=== PATIENT | male | born 1990 | race Caucasian/White ===

== ENCOUNTER 2019-11-20 13:00 | Emergency (ER) | payer SELFPAY ==
[2019-11-20] MEDS ORDERED: NA CHLORIDE 0.9% 2,000 ML ONE (14:08)
[2019-11-20] MEDS ORDERED: ONDANSETRON 4 MG/2 ML VIAL ONE (14:08)
[2019-11-20 14:11] LABS: Basophils % 0.3 % (0-1.3); Hematocrit 51.3 % (39.6-49.0); Lymphocytes % 6.2 % (15.3-44.8); RBC Red Blood Cell Count 5.88 M/uL (4.33-5.43)
[2019-11-20 14:24] LABS: Potassium 3.5 mmol/L (3.5-5.1)
[2019-11-20] MEDS ORDERED: PROMETHAZINE INJ 25 MG/ML AMP ONE (14:42)
--- NOTE | 2019-11-20 15:51 | EDPHYS ---
Physician Documentation [facility] Name: Michael Goncalves Age: 29 yrs Sex: Male : 1990 Arrival Date: 11/20/2019 Time: 13:14 Bed 14 Private MD: ED Physician Yrn Velez HPI: 11/20 13:57 This 29 yrs old Male presents to ER via Ambulatory with complaints of la1 Vomiting, Dehydration. 13:57 The patient presents to the emergency department with nausea, vomiting. Onset: The la1 symptoms/episode began/occurred 5 day(s) ago. Possible causes: flu. The symptoms are aggravated by nothing. The symptoms are alleviated by nothing. Associated signs and symptoms: Pertinent negatives: abdominal pain, constipation, diarrhea, dysuria, fever, GI bleeding, hematuria. Severity of symptoms: At their worst the symptoms were moderate. The patient has not experienced similar symptoms in the past. pt was dx with the flu and has not been able to tolerate food for fluids for the last five days, reports decreased urine output. Denies fevers. . Historical: - Allergies: 13:49 No Known Allergies; ph - Home Meds: 13:49 None [Active]; ph - PMHx: 13:49 None; ph - Immunization history:: Adult Immunizations up to date. - Social history:: Smoking status: Patient/guardian denies using tobacco. - Ebola Screening: : Patient negative for fever greater than or equal to 101.5 degrees Fahrenheit, and additional compatible Ebola Virus Disease symptoms Patient denies exposure to infectious person Patient denies travel to an Ebola-affected area in the 21 days before illness onset No symptoms or risks identified at this time. ROS: 13:59 Constitutional: Negative for fever, chills, and weight loss, Eyes: Negative for injury, la1 pain, redness, and discharge, ENT: Negative for injury, pain, and discharge, Neck: Negative for injury, pain, and swelling, Cardiovascular: Negative for chest pain, palpitations, and edema, Respiratory: Negative for shortness of breath, cough, wheezing, and pleuritic chest pain. 13:59 Back: Negative for injury and pain, : Negative for injury, bleeding, discharge, and swelling, MS/Extremity: Negative for injury and deformity, Neuro: Negative for headache, weakness, numbness, tingling, and seizure, Allergy/Immunology: Negative for hives, rash, and allergies. 13:59 Abdomen/GI: Positive for nausea and vomiting. Exam: 13:59 Constitutional: This is a well developed, well nourished patient who is awake, alert, la1 and in no acute distress. Head/Face: Normocephalic, atraumatic. Eyes: Pupils equal round and reactive to light, extra-ocular motions intact. Periorbital areas with no swelling, redness, or edema. ENT: Mucous membranes moist. Neck: No Meningismus. Chest/axilla: Normal chest wall appearance and motion. Nontender with no deformity. No lesions are appreciated. Cardiovascular: Regular rate and rhythm with a normal S1 and S2. Respiratory: Lungs have equal breath sounds bilaterally, clear to auscultation. No rales, rhonchi or wheezes noted. No increased work of breathing, no retractions or nasal flaring. Abdomen/GI: Soft, non-tender, with normal bowel sounds. No guarding or rebound. No evidence of tenderness throughout. Back: No spinal tenderness. No costovertebral tenderness. Full range of motion. Vital Signs: 13:50 BP 177 / 123; Pulse 63; Resp 18; Temp 97.4; Pulse Ox 100% on R/A; Weight 86.18 kg; ph Height 5 ft. 11 in. (180.34 cm); 15:02 BP 137 / 79; Pulse 84; Resp 17 S; Pulse Ox 99% on R/A; ca1 16:00 BP 124 / 70; Pulse 79; Resp 17 S; Pulse Ox 100% on R/A; ca1 13:50 Body Mass Index 26.50 (86.18 kg, 180.34 cm) ph MDM: 13:43 Patient medically screened. la1 15:06 Data reviewed: vital signs, nurses notes, lab test result(s), and as a result, I will la1 discharge patient. Data interpreted: Pulse oximetry: on room air is 99 %. Interpretation: normal. Counseling: I had a detailed discussion with the patient and/or guardian regarding: the historical points, exam findings, and any diagnostic results supporting the discharge/admit diagnosis, the need for outpatient follow up, a family practitioner, to return to the emergency department if symptoms worsen or persist or if there are any questions or concerns that arise at home. Medication response: Phenergan markedly relieved the patient's nausea. Response to treatment: the patient's symptoms have markedly improved after treatment, patient is well hydrated. and as a result, I will discharge patient. 11/20 13:50 Order name: Basic Metabolic Panel; Complete Time: 14:25 11/20 13:50 Order name: CBC with Diff; Complete Time: 14:11/20 13:50 Order name: IV Saline Lock; Complete Time: 14:11/20 13:50 Order name: Labs collected and sent; Complete Time: 14:11/20 15:06 Order name: PO challenge; Complete Time: 15:27 Administered Medications: 14:05 Drug: NS 0.9% 1000 ml Route: IV; Rate: 1000 ml; Site: right antecubital; ca1 15:30 Follow up: Response: No adverse reaction; IV Status: Completed infusion ca1 14:06 Drug: NS 0.9% 1000 ml Route: IV; Rate: 1 bolus; Site: right antecubital; ca1 15:30 Follow up: Response: No adverse reaction; IV Status: Completed infusion ca1 14:07 Drug: Zofran 4 mg Route: IVP; Site: right antecubital; ca1 14:40 Follow up: Response: No adverse reaction; Nausea unchanged ca1 14:42 Drug: Phenergan 12.5 mg Route: IVP; Site: right antecubital; ca1 15:30 Follow up: Response: No adverse reaction; Nausea is decreased ca1 Disposition: 18:31 Co-signature as Attending Physician, Yrn Velez MD. rn Disposition: 11/20/19 15:50 Discharged to Home. Impression: Nausea and vomiting. - Condition is Stable. - Discharge Instructions: Nausea and Vomiting, Adult, Rehydration, Adult. - Prescriptions for Zofran 4 mg Oral Tablet - take 1 tablet by ORAL route every 12 hours As needed; 20 tablet. promethazine 25 mg Oral Tablet - take 1 tablet by ORAL route every 6 hours As needed; 20 tablet. - Medication Reconciliation Form, Thank You Letter, Work release form form. - Follow up: Private Physician; When: 2 - 3 days; Reason: Recheck today's complaints, Re-evaluation by your physician. - Problem is new. - Symptoms have improved. Signatures: Dispatcher [employer] EDYrn Henley MD MD rn Attema, Lee, EMERGENCY PLANNING AND RESPONSE MANAGER-C EMERGENCY PLANNING AND RESPONSE MANAGER-Cla1 Lindsay Donohue, RN RN ph AcDeysi thompson, RN RN ca1 Corrections: (The following items were deleted from the chart) 16:17 15:50 11/20/2019 15:50 Discharged to Home. Impression: Nausea and vomiting. Condition ca1 is Stable. Forms are Medication Reconciliation Form, Thank You Letter, Antibiotic Education, Prescription Opioid Use. Follow up: Private Physician; When: 2 - 3 days; Reason: Recheck today's complaints, Re-evaluation by your physician. Problem is new. Symptoms have improved. la1
--- NOTE | 2019-11-20 15:51 | ER ---
Nurse's Notes [facility] Name: Michael Goncalves Age: 29 yrs Sex: Male : 1990 Arrival Date: 11/20/2019 Time: 13:14 Bed 14 Private MD: Diagnosis: Nausea and vomiting Presentation: 11/20 13:47 Presenting complaint: Patient states: Dx w/ flu Sunday at urgent care, prescribed ph Tamiflu, c/o N/V, states " I can't keep anything down and I feel dehydrated.". Transition of care: patient was not received from another setting of care. Onset of symptoms was November 20, 2019. Risk Assessment: Do you want to hurt yourself or someone else? Patient reports no desire to harm self or others. Initial Sepsis Screen: Does the patient meet any 2 criteria? No. Patient's initial sepsis screen is negative. Does the patient have a suspected source of infection? No. Patient's initial sepsis screen is negative. Care prior to arrival: None. 13:47 Method Of Arrival: Ambulatory ph 13:50 Acuity: CHRIS 3 ph Historical: - Allergies: 13:49 No Known Allergies; ph - Home Meds: 13:49 None [Active]; ph - PMHx: 13:49 None; ph - Immunization history:: Adult Immunizations up to date. - Social history:: Smoking status: Patient/guardian denies using tobacco. - Ebola Screening: : Patient negative for fever greater than or equal to 101.5 degrees Fahrenheit, and additional compatible Ebola Virus Disease symptoms Patient denies exposure to infectious person Patient denies travel to an Ebola-affected area in the 21 days before illness onset No symptoms or risks identified at this time. Screenin:00 Abuse screen: Denies threats or abuse. Denies injuries from another. Nutritional ca1 screening: No deficits noted. Tuberculosis screening: No symptoms or risk factors identified. Fall Risk IV access (20 points). Assessment: 14:00 General: Appears in no apparent distress. comfortable, Behavior is calm, cooperative, ca1 appropriate for age. Pain: Denies pain. Neuro: Level of Consciousness is awake, alert, obeys commands, Oriented to person, place, time, situation, Appropriate for age. Cardiovascular: Heart tones S1 S2 present Capillary refill < 3 seconds Patient's skin is warm and dry. Respiratory: Airway is patent Respiratory effort is even, unlabored, Respiratory pattern is regular, symmetrical, Breath sounds are clear bilaterally. GI: Abdomen is flat, non-distended, Bowel sounds present X 4 quads. Abd is soft and non tender X 4 quads. Reports nausea, vomiting, since 5 days ago. : No deficits noted. No signs and/or symptoms were reported regarding the genitourinary system. EENT: No deficits noted. No signs and/or symptoms were reported regarding the EENT system. Derm: Skin is intact, is healthy with good turgor, Skin is pink, warm \\T\\ dry. Musculoskeletal: Circulation, motion, and sensation intact. Capillary refill < 3 seconds. 15:02 Reassessment: Patient appears in no apparent distress at this time. Patient and/or ca1 family updated on plan of care and expected duration. Pain level reassessed. Patient is alert, oriented x 3, equal unlabored respirations, skin warm/dry/pink. 16:02 Reassessment: Patient appears in no apparent distress at this time. Patient is alert, ca1 oriented x 3, equal unlabored respirations, skin warm/dry/pink. Tolerated a cup of water. No reports of N/V Patient states feeling better. Patient states symptoms have improved. Vital Signs: 13:50 BP 177 / 123; Pulse 63; Resp 18; Temp 97.4; Pulse Ox 100% on R/A; Weight 86.18 kg; ph Height 5 ft. 11 in. (180.34 cm); 15:02 BP 137 / 79; Pulse 84; Resp 17 S; Pulse Ox 99% on R/A; ca1 16:00 BP 124 / 70; Pulse 79; Resp 17 S; Pulse Ox 100% on R/A; ca1 13:50 Body Mass Index 26.50 (86.18 kg, 180.34 cm) ph ED Course: 13:14 Patient arrived in ED. as 13:35 Spencer Gudino FNP-C [facility]. la1 13:35 Yrn Velez MD is Attending Physician. la1 13:41 Deysi Patterson, INÉS is Primary Nurse. ca1 13:50 Triage completed. ph 13:50 Arm band placed on Patient placed in an exam room, on a stretcher. ph 14:00 Patient has correct armband on for positive identification. Bed in low position. Call ca1 light in reach. Side rails up X 1. Pulse ox on. NIBP on. Warm blanket given. 14:02 No provider procedures requiring assistance completed. Initial lab(s) drawn, by me, ca1 sent to lab. Inserted saline lock: 22 gauge in right antecubital area, using aseptic technique. Blood collected. 16:16 IV discontinued, intact, bleeding controlled, No redness/swelling at site. Pressure ca1 dressing applied. Administered Medications: 14:05 Drug: NS 0.9% 1000 ml Route: IV; Rate: 1000 ml; Site: right antecubital; ca1 15:30 Follow up: Response: No adverse reaction; IV Status: Completed infusion ca1 14:06 Drug: NS 0.9% 1000 ml Route: IV; Rate: 1 bolus; Site: right antecubital; ca1 15:30 Follow up: Response: No adverse reaction; IV Status: Completed infusion ca1 14:07 Drug: Zofran 4 mg Route: IVP; Site: right antecubital; ca1 14:40 Follow up: Response: No adverse reaction; Nausea unchanged ca1 14:42 Drug: Phenergan 12.5 mg Route: IVP; Site: right antecubital; ca1 15:30 Follow up: Response: No adverse reaction; Nausea is decreased ca1 Outcome: 15:50 Discharge ordered by MD. link 16:16 Discharged to home ambulatory. ca1 16:16 Condition: stable 16:16 Discharge instructions given to patient, Instructed on discharge instructions, follow up and referral plans. medication usage, Demonstrated understanding of instructions, follow-up care, medications, Prescriptions given X 2. 16:17 Patient left the ED. ca1 Signatures: Elysia Tobin Lee, CONSUMER RELATIONS COMPLAINT CLERK-C CONSUMER RELATIONS COMPLAINT CLERK-Cla1 Lindsay Donohue, RN RN Deysi Patterson RN RN ca1
[2019-11-20 16:39] VITALS: TEMP 97.4
[2019-11-20 16:42] VITALS: BP 124/70; O2SAT 100
== END 2019-11-20 16:17 | disposition home or self-care (01) ==
LOC: ER 13:00
DX: R11.2 Nausea with vomiting, unspecified (principal)
CPT/HCPCS: 36415; 80048; 85025; 96361; 96374; 96375; 99284; J2405; J2550; J7030

== ENCOUNTER 2019-12-19 20:03 | Emergency (ER) | payer BC, SELFPAY ==
[2019-12-19] MEDS ORDERED: ONDANSETRON 4 MG/2 ML VIAL ONE (20:50)
[2019-12-19] MEDS ORDERED: FAMOTIDINE 20 MG/2 ML VIAL IV ONE (20:50)
[2019-12-19] MEDS ORDERED: NA CHLORIDE 0.9% 1,000 ML ONE (20:50)
[2019-12-19 21:11] LABS: Absolute Lymphocytes (CBC) 1.2 K/uL (0.7-4.9); Basophils % 0.4 % (0-1.3); Hematocrit 45.6 % (39.6-49.0); Lymphocytes % 5.7 % (15.3-44.8); RBC Red Blood Cell Count 5.05 M/uL (4.33-5.43)
[2019-12-19 21:20] LABS: ALT/SGPT 17 U/L (12-78); AST/SGOT 10 U/L (15-37); Albumin 4.8 g/dL (3.4-5.0); Alkaline Phosphatase 59 U/L (45-117); BUN Blood Urea Nitrogen 11 mg/dL (7-18); Bicarbonate 27 mmol/L (21-32); Bilirubin Direct 0.2 mg/dL (0-0.2); Bilirubin Total 0.6 mg/dL (0.2-1.0); Glucose Level 98 mg/dL (74-106); Lipase 132 U/L (73-393); Potassium 3.6 mmol/L (3.5-5.1); Protein, Total 7.9 g/dL (6.4-8.2); Sodium Level 141 mmol/L (136-145)
--- NOTE | 2019-12-20 00:02 | ER ---
Nurse's Notes [facility] Name: Michael Goncalves Age: 29 yrs Sex: Male : 1990 Arrival Date: 12/19/2019 Time: 20:06 Bed 6 Private MD: Diagnosis: Nausea and vomiting Presentation: 12/19 20:20 Presenting complaint: Patient states: I am not feeling well nausea, vomiting and feel rr5 dehydrated. just like the same feeling couple of weeks ago I went here with a flu. 20:20 Transition of care: patient was not received from another setting of care. Onset of rr5 symptoms was December 2019. Risk Assessment: Do you want to hurt yourself or someone else? Patient reports no desire to harm self or others. Initial Sepsis Screen: Does the patient meet any 2 criteria? No. Patient's initial sepsis screen is negative. Does the patient have a suspected source of infection? No. Patient's initial sepsis screen is negative. Care prior to arrival: Medication(s) given: promethazine. 20:20 Method Of Arrival: Ambulatory rr5 20:20 Acuity: CHRIS 3 rr5 Historical: - Allergies: 20:20 No Known Allergies; rr5 - Home Meds: 20:20 None [Active]; rr5 - PMHx: 20:20 None; rr5 - PSHx: 20:20 None; rr5 - Immunization history:: Adult Immunizations up to date. - Coronavirus screen:: The patient has NOT traveled to [place] in the past 14 days. - Social history:: Smoking status: Patient reports the use of cigarette tobacco products, smokes one pack cigarettes per day. Patient/guardian denies using alcohol, street drugs. - Ebola Screening: : Patient negative for fever greater than or equal to 101.5 degrees Fahrenheit, and additional compatible Ebola Virus Disease symptoms Patient denies exposure to infectious person Patient denies travel to an Ebola-affected area in the 21 days before illness onset. Screenin:20 Abuse screen: Denies threats or abuse. Denies injuries from another. Nutritional rr5 screening: No deficits noted. Tuberculosis screening: No symptoms or risk factors identified. Fall Risk None identified. Total Hall Fall Scale indicates No Risk (0-24 pts). Assessment: 21:05 General: Appears in no apparent distress. uncomfortable, Behavior is calm, cooperative, rr5 appropriate for age. Pain: Denies pain. Neuro: Level of Consciousness is awake, alert, obeys commands, Oriented to person, place, time, situation, Reports weakness in genralized. Cardiovascular: Capillary refill < 3 seconds Patient's skin is warm and dry. Respiratory: Airway is patent Respiratory effort is even, unlabored, Respiratory pattern is regular, symmetrical. GI: Abdomen is flat, Reports nausea, vomiting. : No signs and/or symptoms were reported regarding the genitourinary system. EENT: No signs and/or symptoms were reported regarding the EENT system. Derm: Skin is intact, is healthy with good turgor, Skin temperature is warm. Musculoskeletal: Circulation, motion, and sensation intact. Capillary refill < 3 seconds. 22:10 Reassessment: Patient appears in no apparent distress at this time. Patient is alert, rr5 oriented x 3, equal unlabored respirations, skin warm/dry/pink. awaiting for CT result. 23:25 Reassessment: Patient appears in no apparent distress at this time. awaiting for CT rr5 result. follow up to CT department. 23:25 Reassessment: Patient appears in no apparent distress at this time. Patient is alert, rr5 oriented x 3, equal unlabored respirations, skin warm/dry/pink. 12/20 00:00 Reassessment: Patient appears in no apparent distress at this time. Patient is alert, rr5 oriented x 3, equal unlabored respirations, skin warm/dry/pink. review done by ED provider with order made for urine test. patient refused and wants to be discharge. ED provider agreed and given prescription. 00:15 Reassessment: Patient appears in no apparent distress at this time. Patient is alert, rr5 oriented x 3, equal unlabored respirations, skin warm/dry/pink. discharge instruction given and explained without complaints made. Patient states symptoms have improved. Vital Signs: 12/19 20:20 BP 129 / 74; Pulse 63; Resp 18; Temp 98.1; Pulse Ox 95% ; Weight 88.45 kg; Height 5 ft. rr5 11 in. (180.34 cm); Pain 0/10; 21:30 BP 121 / 69; Pulse 66; Resp 17; Pulse Ox 98% on R/A; rr5 22:40 BP 133 / 70; Pulse 60; Resp 16; Pulse Ox 99% ; rr5 23:55 BP 115 / 70; Pulse 61; Resp 15; Temp 98.9; Pulse Ox 98% ; Pain 0/10; rr5 20:20 Body Mass Index 27.20 (88.45 kg, 180.34 cm) rr5 ED Course: 20:06 Patient arrived in ED. es 20:07 Alvaro Alvarado PA is PHCP. cp 20:07 Ac Weiner MD is Attending Physician. cp 20:20 Arm band placed on right wrist. rr5 20:23 Justin Henriquez, INÉS is Primary Nurse. rr5 20:26 Triage completed. rr5 20:28 Patient has correct armband on for positive identification. Placed in gown. Bed in low rr5 position. Call light in reach. Pulse ox on. NIBP on. 20:55 Inserted saline lock: 20 gauge in right antecubital area, using aseptic technique. rr5 Blood collected. 21:20 Notified Nurse Practitioner and/or Physician Animal Shelter Worker of a critical lab result(s), bb WBCs 21. Alvaro SCHMITT notified. 22:[address] Scan. rr5 02 00:00 Jairo Zaragoza MD is Referral Physician. cp 00:15 No provider procedures requiring assistance completed. IV discontinued, intact, rr5 bleeding controlled, No redness/swelling at site. Pressure dressing applied. Administered Medications: 12/19 20:55 Drug: Pepcid 20 mg Route: IVP; Site: right antecubital; rr5 22:00 Follow up: Response: No adverse reaction rr5 20:55 Drug: NS 0.9% 1000 ml Route: IV; Rate: 1 bolus; Site: right antecubital; rr5 23:29 Follow up: Response: No adverse reaction; IV Status: Completed infusion; IV Intake: rr5 1000ml 20:58 Drug: Zofran 4 mg Route: IVP; Site: right antecubital; rr5 22:00 Follow up: Response: No adverse reaction rr5 Intake: 23:29 IV: 1000ml; Total: 1000ml. rr5 Outcome: 12/20 00:01 Discharge ordered by . cp 00:15 Discharged to home ambulatory. rr5 00:15 Condition: stable 00:15 Discharge instructions given to patient, Instructed on discharge instructions, follow up and referral plans. medication usage, Demonstrated understanding of instructions, follow-up care, medications, Prescriptions given X 2. 00:16 Patient left the ED. rr5 Signatures: Ashley Lobato Brenda, RN RN Alvaro Jeong PA PA cp Roque, Raymond, RN RN rr5
--- NOTE | 2019-12-20 00:03 | EDPHYS ---
Physician Documentation [facility] Name: Michael Goncalves Age: 29 yrs Sex: Male : 1990 Arrival Date: 12/19/2019 Time: 20:06 Bed 6 Private MD: ED Physician Ac Weiner HPI: 12/19 20:40 This 29 yrs old Male presents to ER via Ambulatory with complaints of cp Nausea/Vomiting, Dehydration. 20:40 The patient presents to the emergency department with nausea, vomiting, that is cp intermittent. Onset: The symptoms/episode began/occurred 5 day(s) ago. Associated signs and symptoms: Pertinent positives: anorexia, Pertinent negatives: abdominal pain, constipation, diarrhea, fever, GI bleeding. Severity of symptoms: in the emergency department the symptoms are unchanged despite home interventions. The patient has experienced a previous episode, last month, after being diagnosed with influenza. Historical: - Allergies: 20:20 No Known Allergies; rr5 - Home Meds: 20:20 None [Active]; rr5 - PMHx: 20:20 None; rr5 - PSHx: 20:20 None; rr5 - Immunization history:: Adult Immunizations up to date. - Coronavirus screen:: The patient has NOT traveled to [place] in the past 14 days. - Social history:: Smoking status: Patient reports the use of cigarette tobacco products, smokes one pack cigarettes per day. Patient/guardian denies using alcohol, street drugs. - Ebola Screening: : Patient negative for fever greater than or equal to 101.5 degrees Fahrenheit, and additional compatible Ebola Virus Disease symptoms Patient denies exposure to infectious person Patient denies travel to an Ebola-affected area in the 21 days before illness onset. ROS: 20:45 Constitutional: Negative for body aches, chills, fever, weight loss. cp 20:45 Eyes: Negative for injury, pain, redness, and discharge. cp 20:45 ENT: Negative for drainage from ear(s), ear pain, sore throat, difficulty swallowing, difficulty handling secretions. 20:45 Cardiovascular: Negative for chest pain. 20:45 Respiratory: Negative for cough, shortness of breath, wheezing. 20:45 Abdomen/GI: Positive for nausea and vomiting, anorexia, Negative for abdominal pain, diarrhea, constipation. 20:45 Back: Negative for radiated pain. 20:45 : Negative for urinary symptoms. 20:45 Neuro: Negative for headache, weakness. 20:45 All other systems are negative. Exam: 20:50 Constitutional: The patient appears in no acute distress, alert, awake, non-toxic, well cp developed, well nourished. 20:50 Head/Face: Normocephalic, atraumatic. cp 20:50 Eyes: Periorbital structures: appear normal, Conjunctiva: normal, no exudate, no injection, Sclera: no appreciated abnormality, Lids and lashes: appear normal, bilaterally. 20:50 ENT: External ear(s): are unremarkable, Nose: is normal, Mouth: Lips: moist, Oral mucosa: moist, Posterior pharynx: is normal, airway is patent, no erythema, no exudate. 20:50 Chest/axilla: Inspection: normal, Palpation: is normal, no crepitus, no tenderness. 20:50 Cardiovascular: Rate: normal, Rhythm: regular. 20:50 Respiratory: the patient does not display signs of respiratory distress, Respirations: normal, no use of accessory muscles, labored breathing, is not present, Breath sounds: are clear throughout, no decreased breath sounds, no stridor, no wheezing. 20:50 Abdomen/GI: Inspection: abdomen appears normal, Bowel sounds: active, all quadrants, Palpation: abdomen is soft and non-tender, in all quadrants, rebound tenderness, is not appreciated, voluntary guarding, is not appreciated, involuntary guarding, is not appreciated. 20:50 Back: pain, is absent, ROM is normal. Vital Signs: 20:20 BP 129 / 74; Pulse 63; Resp 18; Temp 98.1; Pulse Ox 95% ; Weight 88.45 kg; Height 5 ft. rr5 11 in. (180.34 cm); Pain 0/10; 21:30 BP 121 / 69; Pulse 66; Resp 17; Pulse Ox 98% on R/A; rr5 22:40 BP 133 / 70; Pulse 60; Resp 16; Pulse Ox 99% ; rr5 23:55 BP 115 / 70; Pulse 61; Resp 15; Temp 98.9; Pulse Ox 98% ; Pain 0/10; rr5 20:20 Body Mass Index 27.20 (88.45 kg, 180.34 cm) rr5 MDM: 20:23 Patient medically screened. 12/20 00:00 Data reviewed: vital signs, nurses notes, lab test result(s), radiologic studies, CT cp scan, I have discussed the patient's presentation/case with the attending Emergency Department Physician; and as a result, I will discharge patient. 00:00 Counseling: I had a detailed discussion with the patient and/or guardian regarding: the cp historical points, exam findings, and any diagnostic results supporting the discharge/admit diagnosis, lab results, radiology results, the need for outpatient follow up, a receptionist telephone operator. Refusal of service: The patient/guardian displays adequate decision making capability and despite a detailed discussion of alternatives, benefits, risks, and consequences refuses: urine sample. ED course: VSS. No vomiting observed by patient while in ED. Will discharge to home for continued monitoring. 12/19 20:40 Order name: Basic Metabolic Panel 12/19 20:40 Order name: CBC with Diff 12/19 20:40 Order name: Creatinine for Radiology 12/19 20:40 Order name: Hepatic Function 12/19 20:40 Order name: Lipase cp 12/19 21:18 Order name: CBC with Automated Diff EDCT 12/19 21:26 Interpretation: Normal except: WBC 21.0; MCV 90.4; NEUT A 18.3; LYM% 5.7; GLENNA% 86.9; cp MNA 1.4. 12/19 20:41 Order name: CT Abd/Pelvis - IV Contrast Only cp 12/19 21:19 Order name: Creatinine (Radiology Only); Complete Time: 21:24 EDMS 12/19 21:21 Order name: Basic Metabolic Panel; Complete Time: 21:24 EDMS 12/19 21:21 Order name: Liver (Hepatic) Function; Complete Time: 21:24 EDMS 12/19 23:41 Interpretation: Normal except: AST 10. cp 12/19 21:21 Order name: Lipase; Complete Time: 21:24 EDMS 12/19 20:40 Order name: IV Saline Lock; Complete Time: 21:01 cp 12/19 20:40 Order name: Labs collected and sent; Complete Time: 21:01 cp 12/19 23:41 Order name: PO challenge; Complete Time: 00:16 cp Administered Medications: 12/19 20:55 Drug: Pepcid 20 mg Route: IVP; Site: right antecubital; rr5 22:00 Follow up: Response: No adverse reaction rr5 20:55 Drug: NS 0.9% 1000 ml Route: IV; Rate: 1 bolus; Site: right antecubital; rr5 23:29 Follow up: Response: No adverse reaction; IV Status: Completed infusion; IV Intake: rr5 1000ml 20:58 Drug: Zofran 4 mg Route: IVP; Site: right antecubital; rr5 22:00 Follow up: Response: No adverse reaction rr5 Disposition: 12/20 01:26 Co-signature as Attending Physician, Ac Weiner MD I agree with the assessment and kdr plan of care. Disposition: 12/20/19 00:01 Discharged to Home. Impression: Nausea and vomiting. - Condition is Stable. - Discharge Instructions: Nausea and Vomiting, Adult. - Prescriptions for Pepcid 20 mg Oral Tablet - take 1 tablet by ORAL route every 12 hours for 10 days; 20 tablet. Zofran 4 mg Oral Tablet - take 1 tablet by ORAL route every 12 hours As needed; 20 tablet. - Medication Reconciliation Form, Thank You Letter, Antibiotic Education, Prescription Opioid Use form. - Follow up: Jairo Zaragoza MD; When: 2 - 3 days; Reason: Recheck today's complaints. - Problem is new. - Symptoms have improved. Signatures: Dispatcher [employer] EDMS Ac Weiner MD MD kdr Alvaro Alvarado PA PA cp Roque, Raymond, RN RN rr5 Corrections: (The following items were deleted from the chart) 12/19 21:26 21:24 Normal except: WBC 21.0; MCV 90.4; NEUT A 18.3; LYM% 5.7; GLENNA% 86.9. cp cp 12/20 00:16 12/19 23:50 Urine Dipstick-Ancillary ordered. cp rr5 12/20 00:16 00:01 12/20/2019 00:01 Discharged to Home. Impression: Nausea and vomiting. Condition rr5 is Stable. Forms are Medication Reconciliation Form, Thank You Letter, Antibiotic Education, Prescription Opioid Use. Follow up: Jairo Zaragoza; When: 2 - 3 days; Reason: Recheck today's complaints. Problem is new. Symptoms have improved. cp
[2019-12-20 00:26] VITALS: TEMP 98.1
[2019-12-20 00:28] VITALS: BP 121/69; O2SAT 98
[2019-12-20 04:56] LABS: Blood Morphology Comment NOT SEEN (NOT SEEN); Platelet Estimate ADEQ
--- NOTE | 2019-12-22 12:38 | RAD REPORT ---
EXAM DESCRIPTION: CT - Abdomen Pelvis W Contrast - 12/20/2019 4:21 am CLINICAL HISTORY: The patient is 29 years old and is Male; NAUSEA / VOMITING TECHNIQUE: Axial computed tomography images of the abdomen and pelvis with intravenous contrast. S agittal and coronal reformatted images were created and reviewed. This CT exam was performed using one or more of the following dose reduction techniques: automated exposure control, adjustment of t he mA and/or kV according to patient size, and/or use of iterative reconstruction technique. COMPARISON: No relevant prior studies available. FINDINGS: LUNG BASES: Unremarkable. No mass. No consolidation. ABDOMEN: LIVER: The liver is mildly fatty. GALLBLADDER AND BILE DUCTS: No calcified stones. No ductal dilation. PANCREAS: No ductal dilation. No mass. SPLEEN: Unremarkable. ADRENALS: Unremarkable. No mass. KIDNEYS AND URETERS: Unremarkable. The kidneys enhance symmetrically. No obstructing renal or ur eteral calculus is seen. No hydronephrosis or hydroureter. No perinephric fluid or stranding. STOMACH AND BOWEL: The stomach is minimally filled with fluid and air. The small bowel is relati vely normal in caliber. Stool is present throughout colon. There is no mucosal thickening or evidence of bowel obstruction. PELVIS: APPENDIX: The appendix is normal in caliber without surrounding inflammation. BLADDER: The bladder is well distended. REPRODUCTIVE: Unremarkable as visualized. ABDOMEN and PELVIS: INTRAPERITONEAL SPACE: Unremarkable. No free air. No significant fluid collection. BONES/JOINTS: No acute fracture. SOFT TISSUES: The soft tissues are normal. VASCULATURE: Unremarkable. No abdominal aortic aneurysm. LYMPH NODES: Unremarkable. No enlarged lymph nodes. IMPRESSION: No acute findings on this contrasted CT of the abdomen and pelvis to explain the patient 's symptoms. Electronically signed by: Kimmy Oakley MD 12/19/2019 10:07 PM BEHAVIORAL INSTRUCTOR Due to temporary technical issues with the PACS/Fluency reporting system, reports are being signed by the in house radiologist as a courtesy to ensure prompt reporting. The interpreting radiologist is f ully responsible for the content of the report.
== END 2019-12-20 00:16 | disposition home or self-care (01) ==
LOC: ER 20:03
DX: R11.2 Nausea with vomiting, unspecified (principal)
CPT/HCPCS: 96361; 85025; 80048; 36415; 80076; 83690; 74177; 96375; 96374; 99284; Q9967; J7030; J2405

== ENCOUNTER 2020-01-15 03:09 | Emergency (ER) | payer BC, SELFPAY ==
[2020-01-15] MEDS ORDERED: PROMETHAZINE INJ 25 MG/ML AMP ONE ×2 (04:26→08:06)
[2020-01-15] MEDS ORDERED: MORPHINE 2 MG/ML SYR ONE (04:28)
[2020-01-15] MEDS ORDERED: ONDANSETRON 4 MG/2 ML VIAL ONE (04:29)
[2020-01-15] MEDS ORDERED: NA CHLORIDE 0.9% 1,000 ML ONE ×3 (04:29→08:28)
[2020-01-15] MEDS ORDERED: FAMOTIDINE 20 MG/2 ML VIAL IV ONE (04:29)
[2020-01-15 04:58] LABS: Absolute Lymphocytes (CBC) 1.1 K/uL (0.7-4.9); Basophils % 0.1 % (0-1.3); MPV 11.6 fL (7.6-11.3); RBC Red Blood Cell Count 5.47 M/uL (4.33-5.43)
[2020-01-15 05:52] LABS: Albumin 5.3 g/dL (3.4-5.0); Bilirubin Direct 0.3 mg/dL (0-0.2); Bilirubin Total 1.1 mg/dL (0.2-1.0); Potassium 3.4 mmol/L (3.5-5.1); Protein, Total 9.1 g/dL (6.4-8.2)
--- NOTE | 2020-01-15 07:43 | ER ---
Nurse's Notes [facility] Name: Michael Goncalves Age: 29 yrs Sex: Male : 1990 Arrival Date: 01/15/2020 Time: 03:44 Bed 5 Private MD: Diagnosis: Vomiting;Esophagitis-pneumomediastinum;Elevated white blood cell count Presentation: 01/14 04:15 Chief complaint: Patient states: he has nausea, vomiting, cold sweats since yesterday, bb has had similar symptoms in the past and was told he may have a gastric ulcer. Coronavirus screen: The patient has NOT traveled to a country currently being monitored by the [facility] within the last 14 days. Proceed with normal triage procedures. Ebola Screen: No symptoms or risks identified at this time. Initial Sepsis Screen: Does the patient meet any 2 criteria? No. Patient's initial sepsis screen is negative. Does the patient have a suspected source of infection? No. Patient's initial sepsis screen is negative. Risk Assessment: Do you want to hurt yourself or someone else? Patient reports no desire to harm self or others. Onset of symptoms was January 13, 2020. 04:15 Method Of Arrival: Ambulatory bb 04:15 Acuity: CHRIS 3 bb Historical: - Allergies: 04:18 No Known Allergies; bb - Home Meds: 04:18 None [Active]; bb - PMHx: 04:18 None; bb - PSHx: 04:18 None; bb - Immunization history:: Adult Immunizations up to date. - Social history:: Smoking status: Patient reports the use of cigarette tobacco products, smokes one pack cigarettes per day. - Family history:: not pertinent. Screenin:05 Abuse screen: Denies threats or abuse. Nutritional screening: No deficits noted. jb4 Tuberculosis screening: No symptoms or risk factors identified. Fall Risk None identified. Assessment: 04:10 General: Appears in no apparent distress. uncomfortable, Behavior is calm, cooperative, jb4 appropriate for age. Pain: Complains of pain in abdomen Pain does not radiate. Pain currently is 8 out of 10 on a pain scale. Quality of pain is described as burning. Neuro: Level of Consciousness is awake, alert, obeys commands, Oriented to person, place, time, situation. Cardiovascular: Patient's skin is warm and dry. Respiratory: Airway is patent Respiratory effort is even, unlabored, Respiratory pattern is regular, symmetrical. GI: Abdomen is flat, non-distended, Bowel sounds present X 4 quads. Abd is soft and non tender X 4 quads. Reports nausea, vomiting. : No signs and/or symptoms were reported regarding the genitourinary system. EENT: No signs and/or symptoms were reported regarding the EENT system. Derm: Skin is intact, Skin is pink, warm \T\ dry. Musculoskeletal: Circulation, motion, and sensation intact. Range of motion: intact in all extremities. 05:07 Reassessment: Received critical lab value of WBC 27.0. Reported to Dr. Amos. 05:15 Reassessment: Patient appears in no apparent distress at this time. Patient and/or jb4 family updated on plan of care and expected duration. Pain level reassessed. Patient is alert, oriented x 3, equal unlabored respirations, skin warm/dry/pink. PT reports pain and nausea has decreased. Appears much more comfortable. 05:58 Reassessment: Patient appears in no apparent distress at this time. Patient and/or jb4 family updated on plan of care and expected duration. Pain level reassessed. PT is resting in bed with eyes closed, respirations are even and unlabored. No s/s of distress or pain noted. 07:00 Reassessment: Patient appears in no apparent distress at this time. Patient and/or jb4 family updated on plan of care and expected duration. Pain level reassessed. Patient is alert, oriented x 3, equal unlabored respirations, skin warm/dry/pink. 08:00 Reassessment: Patient appears in no apparent distress at this time. Patient and/or jb4 family updated on plan of care and expected duration. Pain level reassessed. Patient is alert, oriented x 3, equal unlabored respirations, skin warm/dry/pink. 08:00 Reassessment: Patient appears in no apparent distress at this time. Patient and/or jb4 family updated on plan of care and expected duration. Pain level reassessed. Patient is alert, oriented x 3, equal unlabored respirations, skin warm/dry/pink. Pt reports in pain and nausea after medication administration. 09:09 Reassessment: Patient appears in no apparent distress at this time. Patient and/or jb4 family updated on plan of care and expected duration. Pain level reassessed. Patient is alert, oriented x 3, equal unlabored respirations, skin warm/dry/pink. Pt reports a decrease in pain and nausea. Report called to [facility]. Report given to INÉS Sanford. Pt signed consent for transfer. 10:04 Reassessment: Patient appears in no apparent distress at this time. Patient and/or jb4 family updated on plan of care and expected duration. Pain level reassessed. Patient is alert, oriented x 3, equal unlabored respirations, skin warm/dry/pink. Pt reports pain and nausea to be tolerable. Loaded up into EMS stretcher and transported to [facility]. IV site is dry, clean, and intact. No s/s of infiltration or phlebitis. Vital Signs: 04:15 BP 105 / 60; Pulse 93; Resp 18 S; Temp 98.2(O); Pulse Ox 100% on R/A; Weight 81.65 kg bb (R); Height 6 ft. 0 in. (182.88 cm) (R); 05:45 BP 132 / 71; Pulse 51; Resp 16; Pulse Ox 100% on R/A; jb4 06:45 BP 118 / 62; Pulse 78; Resp 16; Pulse Ox 98% on R/A; jb4 08:00 BP 109 / 67; Pulse 65; Resp 16; Pulse Ox 100% on R/A; jb4 09:00 BP 124 / 78; Pulse 57; Resp 16; Temp 98.5(O); Pulse Ox 97% on R/A; jb4 09:45 BP 117 / 73; Pulse 60; Resp 16; Pulse Ox 98% on R/A; jb4 04:15 Body Mass Index 24.41 (81.65 kg, 182.88 cm) ED Course: 03:44 Patient arrived in ED. ds1 04:05 Placed in gown. Bed in low position. Call light in reach. Side rails up X2. Pulse ox jb4 on. NIBP on. 04:14 Alvaro Amos MD is Attending Physician. mayi 04:17 Triage completed. bb 04:18 Arm band placed on Patient placed in an exam room, on a stretcher, on pulse oximetry. bb 04:19 Marcelo Saunders, INÉS is Primary Nurse. jb4 04:20 Inserted saline lock: 18 gauge in right antecubital area, using aseptic technique. bb Blood collected. 06:24 Abdomen Acute Series XRAY In Process Unspecified. EDMS 06:31 CT Chest, Abdomen, Pelvis - W/Contrast In Process Unspecified. EDMS 10:10 No provider procedures requiring assistance completed. Patient transferred, IV remains jb4 in place. Administered Medications: 04:25 Drug: Phenergan 12.5 mg Route: IVP; Site: right antecubital; bb 04:55 Follow up: Response: No adverse reaction; Nausea is decreased jb4 04:30 Drug: NS 0.9% 1000 ml Route: IV; Rate: 1 bolus; Site: right antecubital; jb4 05:30 Follow up: Response: No adverse reaction; IV Status: Completed infusion; IV Intake: jb4 1000ml 04:34 Drug: Pepcid 20 mg Route: IVP; Site: right antecubital; jb4 05:00 Follow up: Response: No adverse reaction jb4 04:35 Drug: morphine 2 mg Route: IVP; Site: right antecubital; jb4 05:00 Follow up: Response: No adverse reaction; Pain is decreased; RASS: Alert and Calm (0) jb4 05:40 Drug: NS 0.9% 1000 ml Route: IV; Rate: 1 bolus; Site: right antecubital; jb4 06:40 Follow up: Response: No adverse reaction; IV Intake: 1000ml jb4 06:40 Follow up: Response: No adverse reaction; IV Status: Completed infusion; IV Intake: jb4 1000ml 08:10 Drug: ProTONIX 40 mg Route: IVP; Site: right antecubital; jb4 08:34 Follow up: Response: No adverse reaction jb4 08:11 Drug: Phenergan 12.5 mg Route: IVP; Site: right antecubital; jb4 08:34 Follow up: Response: No adverse reaction; Nausea is decreased jb4 08:30 Drug: NS 0.9% 1000 ml Route: IV; Rate: 125 ml/hr; Site: right antecubital; jb4 10:03 Follow up: Response: No adverse reaction; IV Status: Infusion continued upon transfer jb4 08:30 Drug: morphine 4 mg {Note: Rass score 0.} Route: IVP; Site: right antecubital; jb4 09:00 Follow up: Response: No adverse reaction; Pain is decreased; RASS: Alert and Calm (0) jb4 08:32 Drug: Zosyn 3.375 grams Route: IVPB; Infused Over: 60 mins; Site: right antecubital; jb4 09:32 Follow up: Response: No adverse reaction; IV Status: Completed infusion; IV Intake: jb4 100ml 10:03 Not Given (Other Intervention Used): Zofran (Ondansetron) 4 mg IVP once; over 2 minutes jb4 Intake: 05:30 IV: 1000ml; Total: 1000ml. jb4 06:40 IV: 1000ml; Total: 2000ml. jb4 06:40 IV: 1000ml; Total: 3000ml. jb4 09:32 IV: 100ml; Total: 3100ml. jb4 Outcome: 07:42 ER care complete, transfer ordered by MD. see 10:10 Transferred by ground EMS to [facility], Transfer form completed. jb4 X-rays sent w/ patient. 10:10 Condition: stable 10:10 Discharge instructions given to patient, Instructed on the need for transfer, Demonstrated understanding of instructions. 10:10 Patient left the ED. jb4 Signatures: Dispatcher [employer] EDMS Alvaro Amos MD MD cha Sanford, Demi ds1 Bhavani Silvestre, INÉS RN Marcelo Chan, INÉS CONTE jbCally Nugent RN RN Corrections: (The following items were deleted from the chart) 05:59 05:58 Reassessment: Patient appears in no apparent distress at this time. Patient jb4 and/or family updated on plan of care and expected duration. Pain level reassessed. Patient is alert, oriented x 3, equal unlabored respirations, skin warm/dry/pink. PT reports pain and nausea has decreased. Appears much more comfortable. jb4
--- NOTE | 2020-01-15 07:44 | EDPHYS ---
Physician Documentation [facility] Name: Michael Goncalves Age: 29 yrs Sex: Male : 1990 Arrival Date: 01/15/2020 Time: 03:44 Bed 5 Private MD: DAVIDA Physician Alvaro Amos HPI: 01/14 04:18 This 29 yrs old Male presents to ER via Ambulatory with complaints of mayi Nausea/Vomiting. 04:18 The patient presents to the emergency department with nausea, vomiting, that is mayi intermittent. Onset: The symptoms/episode began/occurred 2 day(s) ago. Possible causes: unknown. The symptoms are aggravated by nothing. The symptoms are alleviated by nothing. Associated signs and symptoms: Pertinent positives: nausea, vomiting. Severity of symptoms: At their worst the symptoms were moderate in the emergency department the symptoms are unchanged. The patient has experienced similar episodes in the past, a few times. Historical: - Allergies: 04:18 No Known Allergies; bb - Home Meds: 04:18 None [Active]; bb - PMHx: 04:18 None; bb - PSHx: 04:18 None; bb - Immunization history:: Adult Immunizations up to date. - Social history:: Smoking status: Patient reports the use of cigarette tobacco products, smokes one pack cigarettes per day. - Family history:: not pertinent. ROS: 04:18 Constitutional: Negative for fever, chills, and weight loss, Eyes: Negative for injury, mayi pain, redness, and discharge, ENT: Negative for injury, pain, and discharge, Neck: Negative for injury, pain, and swelling, Cardiovascular: Negative for chest pain, palpitations, and edema, Respiratory: Negative for shortness of breath, cough, wheezing, and pleuritic chest pain, Back: Negative for injury and pain, : Negative for injury, bleeding, discharge, and swelling, MS/Extremity: Negative for injury and deformity, Skin: Negative for injury, rash, and discoloration, Neuro: Negative for headache, weakness, numbness, tingling, and seizure, Psych: Negative for depression, anxiety, suicide ideation, homicidal ideation, and hallucinations, Allergy/Immunology: Negative for hives, rash, and allergies, Endocrine: Negative for neck swelling, polydipsia, polyuria, polyphagia, and marked weight changes, Hematologic/Lymphatic: Negative for swollen nodes, abnormal bleeding, and unusual bruising. 04:18 Abdomen/GI: Positive for abdominal pain, nausea and vomiting. Exam: 04:18 Constitutional: This is a well developed, well nourished patient who is awake, alert, mayi and in no acute distress. Head/Face: Normocephalic, atraumatic. Eyes: Pupils equal round and reactive to light, extra-ocular motions intact. Lids and lashes normal. Conjunctiva and sclera are non-icteric and not injected. Cornea within normal limits. Periorbital areas with no swelling, redness, or edema. ENT: Nares patent. No nasal discharge, no septal abnormalities noted. Tympanic membranes are normal and external auditory canals are clear. Oropharynx with no redness, swelling, or masses, exudates, or evidence of obstruction, uvula midline. Mucous membranes moist. Neck: Trachea midline, no thyromegaly or masses palpated, and no cervical lymphadenopathy. Supple, full range of motion without nuchal rigidity, or vertebral point tenderness. No Meningismus. Chest/axilla: Normal chest wall appearance and motion. Nontender with no deformity. No lesions are appreciated. Cardiovascular: Regular rate and rhythm with a normal S1 and S2. No gallops, murmurs, or rubs. Normal PMI, no JVD. No pulse deficits. Respiratory: Lungs have equal breath sounds bilaterally, clear to auscultation and percussion. No rales, rhonchi or wheezes noted. No increased work of breathing, no retractions or nasal flaring. Back: No spinal tenderness. No costovertebral tenderness. Full range of motion. Male : Normal genitalia with no discharge or lesions. Skin: Warm, dry with normal turgor. Normal color with no rashes, no lesions, and no evidence of cellulitis. MS/ Extremity: Pulses equal, no cyanosis. Neurovascular intact. Full, normal range of motion. Neuro: Awake and alert, GCS 15, oriented to person, place, time, and situation. Cranial nerves II-XII grossly intact. Motor strength 5/5 in all extremities. Sensory grossly intact. Cerebellar exam normal. Normal gait. Psych: Awake, alert, with orientation to person, place and time. Behavior, mood, and affect are within normal limits. 04:18 Abdomen/GI: Inspection: abdomen appears normal, Bowel sounds: normal, Palpation: mild abdominal tenderness, in the epigastric area, right upper quadrant and left upper quadrant, Liver: no appreciated palpable abnormalities, Hernia: not appreciated. Vital Signs: 04:15 BP 105 / 60; Pulse 93; Resp 18 S; Temp 98.2(O); Pulse Ox 100% on R/A; Weight 81.65 kg bb (R); Height 6 ft. 0 in. (182.88 cm) (R); 05:45 BP 132 / 71; Pulse 51; Resp 16; Pulse Ox 100% on R/A; jb4 06:45 BP 118 / 62; Pulse 78; Resp 16; Pulse Ox 98% on R/A; jb4 08:00 BP 109 / 67; Pulse 65; Resp 16; Pulse Ox 100% on R/A; jb4 09:00 BP 124 / 78; Pulse 57; Resp 16; Temp 98.5(O); Pulse Ox 97% on R/A; jb4 09:45 BP 117 / 73; Pulse 60; Resp 16; Pulse Ox 98% on R/A; jb4 04:15 Body Mass Index 24.41 (81.65 kg, 182.88 cm) MDM: 04:14 Patient medically screened. [facility] 04:20 Data reviewed: vital signs, nurses notes, lab test result(s), EKG, radiologic studies, [facility] CT scan, plain films. 01/14 04:18 Order name: Basic Metabolic Panel [facility] 01/14 04:18 Order name: CBC with Diff [facility] 01/14 04:18 Order name: Creatinine for Radiology [facility] 01/14 04:18 Order name: Hepatic Function [facility] 01/14 04:18 Order name: Lipase [facility] 01/14 05:07 Order name: CBC with Automated Diff [facility] 01/14 04:18 Order name: Abdomen Acute Series XRAY [facility] 01/14 05:08 Order name: Creatinine (Radiology Only) [facility] 01/14 05:10 Order name: CT Chest, Abdomen, Pelvis - W/Contrast [facility] 01/14 05:59 Order name: Basic Metabolic Panel [facility] 01/14 05:59 Order name: Liver (Hepatic) Function [facility] 01/14 05:59 Order name: Lipase [facility] 01/14 06:15 Order name: Manual Differential [facility] 01/14 08:00 Order name: Urine Dipstick--Ancillary (enter results) 01/14 04:18 Order name: IV Saline Lock; Complete Time: 04:19 [facility] 01/14 04:18 Order name: Labs collected and sent; Complete Time: 04:19 [facility] 01/14 04:18 Order name: Urine Dipstick-Ancillary (obtain specimen); Complete Time: 07:58 [facility] Administered Medications: 04:25 Drug: Phenergan 12.5 mg Route: IVP; Site: right antecubital; 04:55 Follow up: Response: No adverse reaction; Nausea is decreased jb4 04:30 Drug: NS 0.9% 1000 ml Route: IV; Rate: 1 bolus; Site: right antecubital; jb4 05:30 Follow up: Response: No adverse reaction; IV Status: Completed infusion; IV Intake: jb4 1000ml 04:34 Drug: Pepcid 20 mg Route: IVP; Site: right antecubital; jb4 05:00 Follow up: Response: No adverse reaction jb4 04:35 Drug: morphine 2 mg Route: IVP; Site: right antecubital; jb4 05:00 Follow up: Response: No adverse reaction; Pain is decreased; RASS: Alert and Calm (0) jb4 05:40 Drug: NS 0.9% 1000 ml Route: IV; Rate: 1 bolus; Site: right antecubital; jb4 06:40 Follow up: Response: No adverse reaction; IV Intake: 1000ml jb4 06:40 Follow up: Response: No adverse reaction; IV Status: Completed infusion; IV Intake: jb4 1000ml 08:10 Drug: ProTONIX 40 mg Route: IVP; Site: right antecubital; jb4 08:34 Follow up: Response: No adverse reaction jb4 08:11 Drug: Phenergan 12.5 mg Route: IVP; Site: right antecubital; jb4 08:34 Follow up: Response: No adverse reaction; Nausea is decreased jb4 08:30 Drug: NS 0.9% 1000 ml Route: IV; Rate: 125 ml/hr; Site: right antecubital; jb4 10:03 Follow up: Response: No adverse reaction; IV Status: Infusion continued upon transfer jb4 08:30 Drug: morphine 4 mg {Note: Rass score 0.} Route: IVP; Site: right antecubital; jb4 09:00 Follow up: Response: No adverse reaction; Pain is decreased; RASS: Alert and Calm (0) jb4 08:32 Drug: Zosyn 3.375 grams Route: IVPB; Infused Over: 60 mins; Site: right antecubital; jb4 09:32 Follow up: Response: No adverse reaction; IV Status: Completed infusion; IV Intake: jb4 100ml 10:03 Not Given (Other Intervention Used): Zofran (Ondansetron) 4 mg IVP once; over 2 minutes jb4 Disposition: 01/15/20 07:42 Transfer ordered to [facility]. Diagnosis are Vomiting, Esophagitis - pneumomediastinum, Elevated white blood cell count. - Reason for transfer: Higher level of care. - Accepting physician is to [facility]. - Condition is Fair. - Problem is new. - Symptoms are unchanged. Signatures: Dispatcher [employer] EDMS Alvaro Amos MD MD cha Ballard, Brenda, RN RN bb Bryson, James, RN RN jb4 Corrections: (The following items were deleted from the chart) 07:43 07:42 01/15/2020 07:42 Transfer ordered to [facility]. [facility] Diagnosis is Vomiting; Esophagitis - pneumomediastinum. Reason for transfer: Higher level of care. Accepting physician is to [facility]. Condition is Fair. Problem is new. Symptoms are unchanged. [facility] 10:10 07:43 01/15/2020 07:42 Transfer ordered to [facility]. jb4 Diagnosis is Vomiting; Esophagitis - pneumomediastinum; Elevated white blood cell count. Reason for transfer: Higher level of care. Accepting physician is to [facility]. Condition is Fair. Problem is new. Symptoms are unchanged. [facility]
--- NOTE | 2020-01-15 08:03 | RAD REPORT ---
EXAM DESCRIPTION: CT - Chest Abdomen Pelvis W Cont - 01/15/2020 6:17 am CLINICAL HISTORY: Chest and abdominal pain. Vomiting COMPARISON: CT abdomen December 2019 TECHNIQUE: Computed axial tomography of the chest, abdomen and pelvis was obtained. 100 cc Isovue-30 0 was administered intravenously. Oral contrast was not requested. This limits evaluation of bowel. All CT scans are performed using dose optimization technique as appropriate and may include automated exposure control or mA/KV adjustment according to patient size. FINDINGS: The wall of the distal esophagus is thickened. With small amount of extraluminal air is pr esent. Small amount of pneumomediastinum within the upper chest. Minimal stranding within the mediastinal fat. A pleural effusion The lungs are clear. No pneumothorax The mild fatty liver. Spleen, pancreas, adrenals and kidneys are unremarkable IMPRESSION: Thickened wall of the distal esophagus indicating either inflammation or mass. Small amount of periesophageal air as well as the pneumomediastinum within the upper chest. Most like ly the patient has an esophageal tear Examination was discussed with doctor Amos
[2020-01-15] MEDS ORDERED: PIPER/TAZO/NS 3.375gm 3.375 GM/100 ML BAG ONE (08:06)
[2020-01-15] MEDS ORDERED: PANTOPRAZOLE 40 MG INJ ONE (08:06)
[2020-01-15 08:19] LABS: Urine Blood 1+ (NEG); Urine Glucose NEGATIVE (NEG); Urine Protein 1+ (NEG); Urine pH 5.5 (5.0-7.0)
[2020-01-15 08:21] LABS: Blood Morphology Comment NOT SEEN (NOT SEEN); Platelet Estimate ADEQ
--- NOTE | 2020-01-15 08:21 | RAD REPORT ---
EXAM DESCRIPTION: RAD - Abdomen Acute Series - 01/15/2020 5:54 am CLINICAL HISTORY: Abdominal pain FINDINGS: The bowel gas pattern is unremarkable. Free air is not seen beneath the diaphragm. Patient's known small amount of pneumomediastinum is not clearly seen on this examination
[2020-01-15] MEDS ORDERED: MORPHINE 4 MG/ML SYR ONE (08:28)
[2020-01-15 10:25] VITALS: TEMP 98.5
[2020-01-15 10:27] VITALS: BP 117/73; O2SAT 98
== END 2020-01-15 10:10 | disposition short-term general hospital (02) ==
LOC: ER 03:09
DX: K20.9 Esophagitis, unspecified (principal); D72.829 Elevated white blood cell count, unspecified; J98.2 Interstitial emphysema; F17.210 Nicotine dependence, cigarettes, uncomplicated
CPT/HCPCS: 36415; 71260; 74022; 74177; 80048; 80076; 81003; 83690; 85025; 96361; 96365; 96375; 99285; C9113; J2270; J2405; J2543; J2550; J7030; Q9967

== ENCOUNTER 2021-06-06 16:32 | Emergency (ER) | payer OTHER ==
--- OUTSIDE RECORDS SUMMARY | 2021-06-06 16:38 | XMS REPORT | Continuity of Care Document ---
:1990 Author Organization [facility] t Address [address] [place] [address] Care Team Providers Name Role Phone MORIS CHANDLER Attending Clinician Unavailable ESTELLA ROSARIO Admitting Clinician Unavailable Problems Condition Condition Condition Status Onset Resolution Last Treating Co mments Source Name Details Category Date Date Treatment Clinician Date Pneumomedi Pneumomedi Disease Active [facility] Allergies, Adverse Reactions, Alerts This patient has no known allergies or adverse reactions. Social History Social Habit Start Date Stop Date Quantity Comments Source History SDFL [facility] - Alcohol Std Drinks [facility] Center History [facility] - Alcohol Binge Medical Ruma ter Sex Assigned At [facility] Cigarettes smoked 2020-01-15 2020-01-[address] [facility] - current (pack per 00:00:00 00:00:00 Medical Center day) - Reported Tobacco use and 2020-01-15 2020-01-[address] [facility] - exposure 00:00:00 00:00:00 [facility] Alcohol intake 2020-01-15 2020-01-15 [facility]00 of alcohol [facility] (finding) History SDOH 2020-01-15 2020-01-[address] [facility] - Alcohol Frequency 00:00:00 00:00:00 [facility] Smoking Status Start Date Stop Date Source Current every day smoker 2020-01-15 00:00:00 [facility] Medications This patient has no known medications. Procedures This patient has no known procedures. Plan of Care Planned Activity Planned Date Details Comments Source Future Scheduled 2020-07-06 INFLUENZA VACCINE (#1) [facility] 00:00:00 [code = INFLUENZA Medical Ce nter VACCINE (#1)] Future Scheduled [address] [facility] Test 00:00:00 (procedure) [code = [facility] [id number]] Future Scheduled [address] [facility] - Test 00:00:00 0-64 YRS (1 of 1 - Medical C enter PPSV23) [code = PNEUMOCOCCAL VACCINE 0-64 YRS (1 of 1 - PPSV23)] Results Test Description Test Time Test Comments Results Result Comments Source BLOOD CULTURE 2020-01-20 17:00:00 Test Item Value Reference Range Interpretation Comme nts CULTURE (BEAKER) (test code = 1095) No growth in 5 days BLOOD [id number] 17:00:00 Test Item Value Reference Range Interpretation Comments CULTURE (BEAKER) (test No growth in 5 days code = 1095) CBC W/PLT COUNT & AUTO [id number] 07:53:00 Test Item Value Reference Range Interpretation Comments WHITE BLOOD CELL COUNT (BEAKER) 9.1 K/ L 3.5-10.5 (test code = 775) RED BLOOD CELL COUNT (BEAKER) 4.35 M/ L 4.63-6.08 L (test code = 761) HEMOGLOBIN (BEAKER) (test code = 13.2 GM/DL 13.7-17.5 L 410) HEMATOCRIT (BEAKER) (test code = 38.4 % 40.1-51.0 L 411) MEAN CORPUSCULAR VOLUME (BEAKER) 88.3 fL 79.0-92.2 (test code = 753) MEAN CORPUSCULAR HEMOGLOBIN 30.3 pg 25.7-32.2 (BEAKER) (test code = 751) MEAN CORPUSCULAR HEMOGLOBIN CONC 34.4 GM/DL 32.3-36.5 (BEAKER) (test code = 752) RED CELL DISTRIBUTION WIDTH 12.2 % 11.6-14.4 (BEAKER) (test code = 412) PLATELET COUNT (BEAKER) (test 216 K/CU MM 150-450 code = 756) MEAN PLATELET VOLUME (BEAKER) 11.8 fL 9.4-12.4 (test code = 754) NUCLEATED RED BLOOD CELLS 0 /100 WBC 0-0 (BEAKER) (test code = 413) NEUTROPHILS RELATIVE PERCENT 70 % (BEAKER) (test code = 429) LYMPHOCYTES RELATIVE PERCENT 19 % (BEAKER) (test code = 430) MONOCYTES RELATIVE PERCENT 7 % (BEAKER) (test code = 431) EOSINOPHILS RELATIVE PERCENT 2 % (BEAKER) (test code = 432) BASOPHILS RELATIVE PERCENT 1 % (BEAKER) (test code = 437) NEUTROPHILS ABSOLUTE COUNT 6.37 K/ L 1.78-5.38 H (BEAKER) (test code = 670) LYMPHOCYTES ABSOLUTE COUNT 1.76 K/ L 1.32-3.57 (BEAKER) (test code = 414) MONOCYTES ABSOLUTE COUNT (BEAKER) 0.64 K/ L 0.30-0.82 (test code = 415) EOSINOPHILS ABSOLUTE COUNT 0.22 K/ L 0.04-0.54 (BEAKER) (test code = 416) BASOPHILS ABSOLUTE COUNT (BEAKER) 0.07 K/ L 0.01-0.08 (test code = 417) IMMATURE GRANULOCYTES-RELATIVE 0 % 0-1 PERCENT (BEAKER) (test code = 2801) CBC W/PLT COUNT & AUTO [id number] 05:18:00 Test Item Value Reference Range Interpretation Comments WHITE BLOOD CELL COUNT (BEAKER) 10.1 K/ L 3.5-10.5 (test code = 775) RED BLOOD CELL COUNT (BEAKER) 4.35 M/ L 4.63-6.08 L (test code = 761) HEMOGLOBIN (BEAKER) (test code = 13.0 GM/DL 13.7-17.5 L 410) HEMATOCRIT (BEAKER) (test code = 38.2 % 40.1-51.0 L 411) MEAN CORPUSCULAR VOLUME (BEAKER) 87.8 fL 79.0-92.2 (test code = 753) MEAN CORPUSCULAR HEMOGLOBIN 29.9 pg 25.7-32.2 (BEAKER) (test code = 751) MEAN CORPUSCULAR HEMOGLOBIN CONC 34.0 GM/DL 32.3-36.5 (BEAKER) (test code = 752) RED CELL DISTRIBUTION WIDTH 12.3 % 11.6-14.4 (BEAKER) (test code = 412) PLATELET COUNT (BEAKER) (test 257 K/CU MM 150-450 code = 756) MEAN PLATELET VOLUME (BEAKER) 10.9 fL 9.4-12.4 (test code = 754) NUCLEATED RED BLOOD CELLS 0 /100 WBC 0-0 (BEAKER) (test code = 413) NEUTROPHILS RELATIVE PERCENT 73 % (BEAKER) (test code = 429) LYMPHOCYTES RELATIVE PERCENT 16 % (BEAKER) (test code = 430) MONOCYTES RELATIVE PERCENT 8 % (BEAKER) (test code = 431) EOSINOPHILS RELATIVE PERCENT 2 % (BEAKER) (test code = 432) BASOPHILS RELATIVE PERCENT 1 % (BEAKER) (test code = 437) NEUTROPHILS ABSOLUTE COUNT 7.38 K/ L 1.78-5.38 H (BEAKER) (test code = 670) LYMPHOCYTES ABSOLUTE COUNT 1.59 K/ L 1.32-3.57 (BEAKER) (test code = 414) MONOCYTES ABSOLUTE COUNT (BEAKER) 0.85 K/ L 0.30-0.82 H (test code = 415) EOSINOPHILS ABSOLUTE COUNT 0.16 K/ L 0.04-0.54 (BEAKER) (test code = 416) BASOPHILS ABSOLUTE COUNT (BEAKER) 0.07 K/ L 0.01-0.08 (test code = 417) IMMATURE GRANULOCYTES-RELATIVE 1 % 0-1 PERCENT (BEAKER) (test code = 2801) URINALYSIS W/ REFLEX URINE [id number] 18:45:00 Test Item Value Reference Range Interpretation Comments COLOR (BEAKER) (test code = 470) Yellow CLARITY (BEAKER) (test code = 469) Clear SPECIFIC GRAVITY UA (BEAKER) (test > 1.001-1.035 H code = 468) PH UA (BEAKER) (test code = 467) 6.0 5.0-8.0 PROTEIN UA (BEAKER) (test code = 50 mg/dL Negative A 464) GLUCOSE UA (BEAKER) (test code = Negative Negative 365) KETONES UA (BEAKER) (test code = >150 mg/dL Negative A 371) BILIRUBIN UA (BEAKER) (test code = Negative Negative 462) BLOOD UA (BEAKER) (test code = Negative Negative 461) NITRITE UA (BEAKER) (test code = Negative Negative 465) LEUKOCYTE ESTERASE UA (BEAKER) Negative Negative (test code = 466) UROBILINOGEN UA (BEAKER) (test 0.2 mg/dL 0.2-1.0 code = 463) RBC UA (BEAKER) (test code = 519) < /HPF WBC UA (BEAKER) (test code = 520) 1 /HPF SQUAMOUS EPITHELIAL (BEAKER) (test < /HPF code = 516) SOURCE(BEAKER) (test code = 2795) Wafer Production Lead Worker ID - [auto]RAPID DRUG SCREEN, [id number] 17:20:00 Test Item Value Reference Range Interpretation Comments BARBITURATE URINE (BEAKER) (test Negative Negative code = 725) BENZODIAZEPINE SCREEN URINE (BEAKER) Negative Negative (test code = 726) COCAINE (METAB.) SCREEN (BEAKER) Negative Negative (test code = 1164) METHADONE SCREEN (BEAKER) (test code Negative Negative = 1436) OPIATE SCREEN URINE (BEAKER) (test Positive Negative A code = 734) CANNABINOID SCREEN URINE (BEAKER) Negative Negative (test code = 727) AMPH/METHAMPH SCREEN (BEAKER) (test Negative Negative code = 1438) PHENCYCLIDINE SCREEN URINE (BEAKER) Negative Negative (test code = 608) PH UA (BEAKER) (test code = 467) 6.0 5.0-8.0 DRUG CUTOFF CONC.Cocaine 300 ng/mL Cannabinoid 50 ng/mLBenzodiazepine 200 ng/mLBarbiturate 200 ng/mLPhencyclidine 25 ng/mLOpiate 300 ng/mLMethadone 300 ng/mLAmphetamine/ 1000 ng/mL MethamphetamineThis assay provides an unconfirmed qualitative test result for the clinical management of patients in emergency situations. Chain of custody not maintained. Some ljha-gsb-gpenfqx medications, as well as adulterants, may cause inaccurate results. Clinical correlation should be applied. A more comprehensivedrug screen or confirmation of a detected drug may be performed upon request.Wafer Production Lead Worker ID - DBFL, ESOPHAGUS 2020-01-15 17:00:00Reason for exam:->rule out esophageal perforationFINAL REPORT Gastrografin esophagogram Clinical History: rule out esophagealperforation Discussion: Gastrografin is given to the patient to drink, without difficulties. The esophageal motility and caliber is normal. There is no extravasation of contrast. Fluoro time: 0.5 minutes Number of images obtained: 6 Signed: Alicia, Js MDReport Verified Date/Time: 01/15/2020 17:00:39 Reading Location: [facility] [id number] Ortho Consult Reading Room (CELLAVISION MANUAL DIFF)2020-01-15 14:38:00 Test Item Value Reference Range Interpretation Comments NEUTROPHILS - REL 80 % (CELLAVISION)(BEAKER) (test code = 2816) LYMPHOCYTES - REL 9 % (CELLAVISION)(BEAKER) (test code = 2817) MONOCYTES - REL 8 % (CELLAVISION)(BEAKER) (test code = 2818) BANDS - REL (CELLAVISION)(BEAKER) 2 % 0-10 (test code = 2826) ATYPICAL LYMPHOCYTES - REL 1 % 0-0 H (CELLAVISION)(BEAKER) (test code = 2829) NEUTROPHILS - ABS 21.20 K/ul 1.78-5.38 H (CELLAVISION)(BEAKER) (test code = 2830) LYMPHOCYTES - ABS 2.39 K/ul 1.32-3.57 (CELLAVISION)(BEAKER) (test code = 2831) MONOCYTES - ABS 2.12 K/uL 0.30-0.82 H (CELLAVISION)(BEAKER) (test code = 2832) BANDS - ABS (CELLAVISION)(BEAKER) 0.53 K/uL 0.00-0.80 (test code = 2840) ATYPICAL LYMPHOCYTES - ABS 0.27 K/uL 0.00-0.00 H (CELLAVISION)(BEAKER) (test code = 2858) TOTAL COUNTED (BEAKER) (test code 100 = 1351) RBC MORPHOLOGY (BEAKER) (test code Normal = 762) WBC MORPHOLOGY (BEAKER) (test code Normal = 487) PLT MORPHOLOGY (BEAKER) (test code Normal = 486) Diff performed manuallyC W/PLT COUNT & AUTO [id number] 14:38:00 Test Item Value Reference Range Interpretation Comments WHITE BLOOD CELL COUNT (BEAKER) 26.5 K/ L 3.5-10.5 H (test code = 775) RED BLOOD CELL COUNT (BEAKER) 4.55 M/ L 4.63-6.08 L (test code = 761) HEMOGLOBIN (BEAKER) (test code = 13.8 GM/DL 13.7-17.5 410) HEMATOCRIT (BEAKER) (test code = 39.7 % 40.1-51.0 L 411) MEAN CORPUSCULAR VOLUME (BEAKER) 87.3 fL 79.0-92.2 (test code = 753) MEAN CORPUSCULAR HEMOGLOBIN 30.3 pg 25.7-32.2 (BEAKER) (test code = 751) MEAN CORPUSCULAR HEMOGLOBIN CONC 34.8 GM/DL 32.3-36.5 (BEAKER) (test code = 752) RED CELL DISTRIBUTION WIDTH 12.7 % 11.6-14.4 (BEAKER) (test code = 412) PLATELET COUNT (BEAKER) (test 358 K/CU MM 150-450 code = 756) MEAN PLATELET VOLUME (BEAKER) 10.5 fL 9.4-12.4 (test code = 754) NUCLEATED RED BLOOD CELLS 0 /100 WBC 0-0 (BEAKER) (test code = 413) RAD, CHEST, 1 VIEW, NON [id number] 12:38:00Reason for exam:->chest pain FINAL REPORT INDICATION: chest pain COMPARISON: None TECHNIQUE: Single frontal view of the chest. FINDINGS: Lungs and pleura: Clear lungs. No effusion.Heart and mediastinum: Normal heart size. Unremarkable mediastinal contours.Osseous structures: No acute abnormality.Other: None. IMPRESSION: No acute intrathoracic abnormality. Signed: Yue Mcdaniel MDReport Verified Date/Time: 01/15/2020 12:38:26 Reading Location: [facility] Radiology Reading Room Electronically signedby: YUE MCDANIEL MD on 01/15/2020 12:38 [facility] [id number] 12:23:00 Test Item Value Reference Range Interpretation Comments TROPONIN I (BEAKER) (test code = 397) < ng/mL 0.00-0.03 Troponin I (TnI) levels must be interpreted in the context of the presenting symptoms and the clinical findings. Elevated TnI levels indicate myocardial damage, but are not specific for ischemic heart disease. Elevated TnI levels are seen in patients with other cardiac conditions (including myocarditis and congestive heart failure), and slight TnI elevations occur in patients with other conditions, including sepsis, renal failure, acidosis, acute neurological disease, and persistent tachyarrhythmia.Wafer Production Lead Worker ID - GEGE FB-TYPE NATRIURETIC FACTOR (BNP)2020-01-15 12:21:00 Test Item Value Reference Range Interpretation Comments B-TYPE NATRIURETIC PEPTIDE (BEAKER) 28 pg/mL 0-100 (test code = 700) Wafer Production Lead Worker ID - GEGE [id number] 12:16:00 Test Item Value Reference Range Interpretation Comments MAGNESIUM (BEAKER) (test code = 2.1 mg/dL 1.6-2.6 627) Wafer Production Lead Worker ID - GEGE FBASIC METABOLIC [id number] 12:16:00 Test Item Value Reference Range Interpretation Comments SODIUM (BEAKER) 135 meq/L 136-145 L (test code = 381) POTASSIUM (BEAKER) 3.4 meq/L 3.5-5.1 L (test code = 379) CHLORIDE (BEAKER) 104 meq/L 98-107 (test code = 382) CO2 (BEAKER) (test 16 meq/L 22-29 L code = 355) BLOOD UREA NITROGEN 13 mg/dL 7-21 (BEAKER) (test code = 354) CREATININE (BEAKER) 0.79 mg/dL 0.57-1.25 (test code = 358) GLUCOSE RANDOM 80 mg/dL 70-105 (BEAKER) (test code = 652) CALCIUM (BEAKER) 9.0 mg/dL 8.4-10.2 (test code = 697) EGFR (BEAKER) (test 117 mL/min/1.73 ESTIM ATED GFR IS code = 1092) sq m NOT ACCURATE CREATININE CLEARANCE IN PREDICTING GLOMERULAR FILTRATION RATE . ESTIMATED GFR I S NOT APPLICABLE FOR DIALYSIS PATIEN TS. Wafer Production Lead Worker ID - GEGE FLACTIC ACID, [id number] 12:10:00 Test Item Value Reference Range Interpretation Comments LACTATE BLOOD VENOUS (2) (BEAKER) 0.7 mmol/L 0.5-2.2 (test code = 2872) Wafer Production Lead Worker ID - GEGE [id number] 12:02:00 Test Item Value Reference Range Interpretation Comments PROTIME (BEAKER) (test code = 14.8 seconds 11.9-14.2 H 759) INR (BEAKER) (test code = 370) 1.2 <=5.9 PARTIAL THROMBOPLASTIN TIME 38.8 seconds 22.5-36.0 H (ASIA) (test code = 760) Effective 04/02/2019: PT Reference Range ChangeNew: 11.9-14.2 Previous: 11.7- 14.7RECOMMENDED COUMADIN/WARFARIN INR THERAPY RANGESSTANDARD DOSE: 2.0-3.0 Includes: PROPHYLAXIS for venous thrombosis, systemic embolization; TREATMENT for venous thrombosis and/or pulmonary embolus.HIGH RISK: Target INR is2.5-3.5 for patients wiht mechanical heart valves.
--- NOTE | 2021-06-06 17:48 | RAD REPORT ---
EXAM DESCRIPTION: CT - Thorax Wo Con CLINICAL HISTORY: Chest pain PAIN COMPARISON: No comparisons FINDINGS: The lungs are clear. No pleural thickening or pleural effusion. No pneumothorax. No axillary, mediastinal or hilar adenopathy. No concerning bony finding. No gross upper abdominal finding. All CT scans are performed using dose optimization technique as appropriate and may include automated exposure control or mA/KV adjustment according to patient size. IMPRESSION: Negative study.
--- NOTE | 2021-06-06 18:03 | EDPHYS ---
Physician Documentation [facility] Name: Michael Goncalves Age: 31 yrs Sex: Male : 1990 Arrival Date: 06/06/2021 Time: 16:36 Bed DIS2 Private MD: ED Physician Ac Weiner HPI: 06/06 16:55 This 31 yrs old Male presents to ER via Ambulatory with complaints of Trauma pm1 to upper body, Shortness Of Breath, Rib pain. 16:55 The patient or guardian reports chest pain that is located primarily in the left pm1 breast. The pain does not radiate. Associated signs and symptoms: Pertinent positives: shortness of breath, Pertinent negatives: abdominal pain, cough, nausea, palpitations, vomiting. The chest pain is described as aching. Duration: The patient or guardian reports a single episode, that is still ongoing. Modifying factors: The symptoms are alleviated by nothing. the symptoms are aggravated by deep breath. Severity of pain: in the emergency department the pain is unchanged. The patient has not experienced similar symptoms in the past. The patient has not recently seen a physician. 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 Occurred 2-3 days ago. Historical: - Allergies: 16:47 No Known Allergies; da3 - PMHx: 16:47 Anxiety; da3 ROS: 16:55 Constitutional: Negative for fever, chills, and weight loss, Abdomen/GI: Negative for pm1 abdominal pain, nausea, vomiting, diarrhea, and constipation. 16:55 Back: Negative for injury and pain, MS/Extremity: Negative for injury and deformity, Skin: Negative for injury, rash, and discoloration, Neuro: Negative for headache, weakness, numbness, tingling, and seizure. 16:55 Cardiovascular: Positive for chest pain, of the left breast, Negative for edema, palpitations. 16:55 Respiratory: Positive for shortness of breath. 16:55 All other systems are negative. Exam: 16:55 Constitutional: This is a well developed, well nourished patient who is awake, alert, pm1 and in no acute distress. Head/Face: Normocephalic, atraumatic. 16:55 Back: No spinal tenderness. No costovertebral tenderness. Full range of motion. Skin: Warm, dry with normal turgor. Normal color with no rashes, no lesions, and no evidence of cellulitis. MS/ Extremity: Pulses equal, no cyanosis. Neurovascular intact. Full, normal range of motion. 16:55 Eyes: Exam is negative for acute changes, Extraocular movements: no acute changes, Conjunctiva: no acute changes, no injection, Sclera: no acute changes, icterus, is not appreciated. 16:55 Chest/axilla: Inspection: normal, no abrasion, no deformity, no ecchymosis, no evidence of flail chest, Palpation: crepitus, is not appreciated, tenderness, of the left breast, that totally reproduces the patient's complaints. 16:55 Cardiovascular: Rate: normal, Rhythm: regular, Pulses: no pulse deficits are appreciated. 16:55 Respiratory: the patient does not display signs of respiratory distress, Respirations: normal, Breath sounds: are clear throughout. 16:55 Abdomen/GI: Exam negative for acute changes, Inspection: abdomen appears normal, Palpation: abdomen is soft and non-tender, in all quadrants. 16:55 Neuro: Exam negative for acute changes, Orientation: is normal, Mentation: is normal, Motor: is normal, moves all fours. Vital Signs: 16:44 BP 139 / 69; Pulse 83; Resp 30; Temp 98.2; Pulse Ox 100% on R/A; da3 16:49 BP 139 / 69; Pulse 97; Resp 30; Temp 98.2; Pulse Ox 100% on R/A; da3 18:21 BP 131 / 62; Pulse 61; Resp 16; Temp 97.2; Pulse Ox 100% ; vg1 MDM: 16:55 Data reviewed: vital signs. Data interpreted: Pulse oximetry: on room air is 100 %. pm1 Interpretation: normal. 16:59 Patient medically screened. pm1 18:00 Counseling: I had a detailed discussion with the patient and/or guardian regarding: the pm1 historical points, exam findings, and any diagnostic results supporting the discharge/admit diagnosis, radiology results, the need for outpatient follow up, a family practitioner, to return to the emergency department if symptoms worsen or persist or if there are any questions or concerns that arise at home. 18:07 ED course: [place]MP[place] reviewed. Patient without any current narcotic quantity and he does pm1 needs a refill on his lunesta and clonazepam. 06/06 16:54 Order name: CT Chest Wo Con; Complete Time: 17:50 pm1 Administered Medications: 18:09 Drug: Ketorolac 60 mg Route: IM; Site: left deltoid; bp 18:09 Drug: [place] (HYDROcodone-acetaminophen) 10 mg-325 mg 1 tabs Route: PO; bp Disposition: 06/07 07:42 Co-signature as Attending Physician, Ac Weiner MD I agree with the assessment and kdr plan of care. Disposition Summary: 06/06/21 18:02 Discharge Ordered Location: Home pm1 Problem: new pm1 Symptoms: have improved pm1 Condition: Stable pm1 Diagnosis - Contusion of left front wall of thorax pm1 Followup: pm1 - With: Emergency Department - When: As needed - Reason: Worsening of condition Followup: pm1 - With: Private Physician - When: 2 - 3 days - Reason: Recheck today's complaints, Continuance of care, Re-evaluation by your physician Discharge Instructions: - Discharge Summary Sheet pm1 - Contusion pm1 Forms: - Medication Reconciliation Form pm1 - Thank You Letter pm1 - Antibiotic Education pm1 - Prescription Opioid Use pm1 Prescriptions: - acetaminophen-codeine 300-15 mg Oral tablet - take 2 tablet by ORAL route every 6 hours As needed as needed; 20 tablet; pm1 Refills: 0, Product Selection Permitted - Diclofenac Sodium 75 mg Oral tablet,delayed release (DR/EC) - take 1 tablet by ORAL route every 12 hours As needed; 30 tablet; Refills: 0, pm1 Product Selection Permitted Signatures: Dispatcher [employer] EDKS Ac Weiner MD MD kdr Marinas, Patrick, NP GRAVITY PROSPECTING OBSERVER HELPER pm1 Jomar Fan, RN RN Zaheer Bustamante, RN RN da3
--- NOTE | 2021-06-06 18:03 | ER ---
Nurse's Notes [facility] Name: Michael Goncalves Age: 31 yrs Sex: Male : 1990 Arrival Date: 06/06/2021 Time: 16:36 Bed DIS2 Private MD: Diagnosis: Contusion of left front wall of thorax Presentation: 06/06 16:44 Chief complaint: Patient states: Left chest pain secondary to a trauma. Log rolled in da3 delisa chest. Coronavirus screen: Client denies travel out of the [place] in the last 14 days. At this time, the client does not indicate any symptoms associated with coronavirus-19. Ebola Screen: No symptoms or risks identified at this time. Initial Sepsis Screen: Does the patient meet any 2 criteria? No. Patient's initial sepsis screen is negative. Risk Assessment: Do you want to hurt yourself or someone else? Patient reports no desire to harm self or others. 16:44 Method Of Arrival: Ambulatory da3 16:44 Acuity: CHRIS 3 da3 Triage Assessment: 16:48 General: Appears distressed, uncomfortable. da3 Historical: - Allergies: 16:47 No Known Allergies; da3 - PMHx: 16:47 Anxiety; da3 Assessment: 18:21 Reassessment: Patient appears in no apparent distress at this time. Patient is alert, vg1 oriented x 3, equal unlabored respirations, skin warm/dry/pink. Patient states feeling better. Vital Signs: 16:44 BP 139 / 69; Pulse 83; Resp 30; Temp 98.2; Pulse Ox 100% on R/A; da3 16:49 BP 139 / 69; Pulse 97; Resp 30; Temp 98.2; Pulse Ox 100% on R/A; da3 18:21 BP 131 / 62; Pulse 61; Resp 16; Temp 97.2; Pulse Ox 100% ; vg1 ED Course: 16:36 Patient arrived in ED. mr 16:47 Triage completed. da3 16:59 José Miguel Frost NP is PHCP. pm1 16:59 Ac Weiner MD is Attending Physician. pm1 17:37 CT Chest Wo Con In Process Unspecified. EDMS Administered Medications: 18:09 Drug: Ketorolac 60 mg Route: IM; Site: left deltoid; bp 18:09 Drug: [place] (HYDROcodone-acetaminophen) 10 mg-325 mg 1 tabs Route: PO; bp Outcome: 18:02 Discharge ordered by . pm1 18:22 Patient left the ED. vg1 Signatures: Dispatcher [employer] Amalia Mackenzie MargotJosé Miguel, CHAIN MAKER CHAIN MAKER pm1 Jomar Fan, INÉS RN Usha Verma RN RN vg1 Zaheer King RN RN da3
[2021-06-06 18:26] VITALS: O2SAT 100
[2021-06-06] MEDS ORDERED: KETOROLAC 30 MG/ML INJ ONE (18:27)
[2021-06-06] MEDS ORDERED: HYDROCODONE/APAP 10/325 TAB ONE (18:27)
[2021-06-06 18:30] VITALS: BP 131/62; TEMP 97.2
== END 2021-06-06 18:22 | disposition home or self-care (01) ==
LOC: ER 16:32
DX: S20.212A Contusion of left front wall of thorax, initial encounter (principal); W22.8XXA Striking against or struck by other objects, initial encounter
CPT/HCPCS: 71250